=== PATIENT | female | born 1945 | race Two or more races ===

== ENCOUNTER → 2025-01-26 | Outpatient (CLI) | payer MEDICARE, MEDICAID, SELFPAY ==
[2025-01-26 10:05] LABS: Basophils # (Auto) 0.1 Thou/mm3 (0.0-0.2); Basophils % (Auto) 2 % (0-2.5); Eosinophils # (Auto) 0.1 Thou/mm3 (0.0-0.5); Eosinophils % (Auto) 3 % (0-10); Hematocrit 35.5 % (36.0-46.0); Hemoglobin 12.1 g/dL (12.0-16.0); Immature Granulocytes % (Auto) 0 % (0-0); Immature Granulocytes Auto 0.01 Thou/mm3 (0.00-0.00); Lymphocytes # (Auto) 1.3 Thou/mm3 (1.0-4.8); Lymphocytes % (Auto) 34 % (10-50); Mean Corpuscular HGB Conc 34.1 g/dl (31.0-37.0); Mean Corpuscular Hemoglobin 29.4 pg (25.0-35.0); Mean Corpuscular Volume 86 fL (80-100); Monocytes # (Auto) 0.4 Thou/mm3 (0.0-0.8); Monocytes % (Auto) 11 % (0-12); Neutrophils # (Auto) 1.9 Thou/mm3 (1.8-7.7); Neutrophils % (Auto) 51 % (37-80); Nucleated Red Blood Cell % 0 /100 WBC (0); Platelet Count 155 Thou/mm3 (140-440); RDW Standard Deviation 42.5 fL (36.4-46.3); Red Blood Count 4.12 Miln/mm3 (4.00-5.20); White Blood Count 3.8 Thou/mm3 (3.6-11.0)
[2025-01-26 10:13] LABS: Anion Gap 8 (7-16); BUN/Creatinine Ratio 35 Ratio (12-20); Blood Urea Nitrogen 21 mg/dL (9-23); Calcium 9.1 mg/dL (8.3-10.6); Carbon Dioxide 28.3 mMol/L (20.0-31.0); Chloride 105 mMol/L (98-107); Creatinine (Component) 0.6 mg/dL (0.6-1.3); Glucose 92 mg/dL (74-106); Osmolality,Calculated 284 (275-295); Potassium 3.4 mMol/L (3.4-5.1); Sodium 141 mMol/L (136-145); eGFR > 60 See Note
[2025-01-26 10:37] LABS: INR 1.1 (0.9-1.3); Partial Thromboplastin Time 28.1 Seconds (22.0-36.0); Prothrombin Time 11.8 Seconds (9.0-12.2)
[2025-01-28 23:37] LABS: HCV RNA, PCR <15 NOT DETECTED IU/mL
[2025-01-29 07:00] LABS: HCV RNA, PCR Log IU <1.18 NOT DETECTED Log IU/mL
== END | disposition home or self-care (01) ==
LOC: COPL 09:00
PROVIDERS: PCP Physician Assistant; Referring Provider Specialist; Visit Provider Radiology Diagnostic Radiology
DX: Z01.818 Encounter for other preprocedural examination (principal); I73.9 Peripheral vascular disease, unspecified; R53.1 Weakness; R79.1 Abnormal coagulation profile; R60.9 Edema, unspecified; R53.83 Other fatigue; B17.10 Acute hepatitis C without hepatic coma
CPT/HCPCS: 36415; 80048; 82105; 85025; 85610; 85730; 87522

== ENCOUNTER → 2025-02-05 | Outpatient (CLI) | payer MEDICARE, MEDICAID, SELFPAY ==
--- NOTE | 2025-02-05 10:30 | XR_ITS ---
Examination: Abdomen sonogram, Limited Date and time of exam: February 05, 2025 1050 hours INDICATIONS: Diagnosis chronic hepatitis C with abdominal pain beginning one year ago Technique: Real-time english scale transabdominal sonographic images of the upper abdomen obtained. Findings: Absent gallbladder Common bile duct abnormally enlarged 1.3 cm no stones Pancreatic head 2.2 cm Liver 14.1 cm lobular contour fatty infiltration Normal hepatopedal portal venous flow Patent IVC IMPRESSION: Abnormally enlarged common bile duct, consider MRCP follow-up Primary hepatocellular disease
== END | disposition home or self-care (01) ==
PROVIDERS: PCP Physician Assistant; Referring Provider Specialist; Visit Provider Specialist
DX: K83.8 Other specified diseases of biliary tract (principal); K76.89 Other specified diseases of liver
CPT/HCPCS: 76705

== ENCOUNTER 2025-04-28 07:30 | Day surgery (SDC) | payer MEDICARE, MEDICAID, SELFPAY ==
[2025-04-27 13:39] VITALS: BMI 24.0
[2025-04-28] VITALS (8 sets, daily range): BP systolic 113–195; BP diastolic 51–97; PULSE 54–77; RESP 14–20; TEMP 36.1–36.2; O2SAT 95–100; BMI 21.9
[2025-04-28] MEDS: BENZOCAINE 20% (Hurricaine) SPRAY 1 DOSE TOP (08:43)
[2025-04-28] MEDS: SODIUM CHLORIDE 0.9% 500 ML 500 ML 20 ML IV (08:43)
[2025-04-28] MEDS: fentaNYL CIT INJ 50 mCg/ML AMP 2ML (ASD USE ONLY) IVP (08:45)
[2025-04-28] MEDS: MIDAZOLAM INJ 1 MG/ML VIAL 2 ML (ASD USE ONLY) 2 MG IVP (08:45)
[2025-04-28] MEDS: hydrALAZINE INJ 20 MG/ML VIAL 10 MG IVP (08:48)
== END 2025-04-28 09:25 | disposition home or self-care (01) ==
PROVIDERS: PCP Physician Assistant; Referring Provider Specialist; Visit Provider Specialist
PROC: (CPT 43239; principal; 2025-04-28 08:30)
DX: I85.10 Secondary esophageal varices without bleeding (principal); K74.60 Unspecified cirrhosis of liver; K31.89 Other diseases of stomach and duodenum; K29.50 Unspecified chronic gastritis without bleeding; K44.9 Diaphragmatic hernia without obstruction or gangrene
CPT/HCPCS: 43235; J0360; J1200; J2250; J3010; J7999; A9270

== ENCOUNTER → 2025-06-02 | Outpatient (CLI) | payer MEDICARE, MEDICAID, SELFPAY ==
[2025-06-02 10:46] LABS: Collection Type, Urine Clean Catch; Squamous Epithelial Cell,Urine 0 /hpf (0-5)
[2025-06-02 12:10] LABS: Bacteria,Urine 1+; Bilirubin,Urine Negative (Negative); Blood,Urine Negative (Negative); Clarity,Urine Clear (Clear/Hazy); Color,Urine Lt-Yellow (Lt Yel-Yel); Glucose, Urine Negative (Negative); Ketones,Urine Negative (Negative); Leukocyte Esterase,Urine Negative (Negative); Nitrite,Urine Negative (Negative); PH,Urine 6.0 (5.0-7.0); Protein,Urine Negative (Neg - Trace); RBC,Urine 2 /hpf (0-3); Specific Gravity,Urine 1.012 (1.001-1.035); Urobilinogen,Urine Negative mg/dL (0.0-1.0); WBC,Urine 2 /hpf (0-5)
[2025-06-02 12:14] LABS: Culture Indicated,Urine Yes
== END | disposition home or self-care (01) ==
LOC: SLDO 10:40
PROVIDERS: Referring Provider Physician Assistant; Visit Provider Physician Assistant
DX: N39.3 Stress incontinence (female) (male) (principal); R82.90 Unspecified abnormal findings in urine
CPT/HCPCS: 81001; 87077; 87086; 87186

== ENCOUNTER 2025-06-06 09:27 | Emergency (ER) | payer MEDICARE, MEDICAID, SELFPAY ==
[2025-06-06 09:34] VITALS: PULSE 76; RESP 20; O2SAT 96
[2025-06-06 09:39] VITALS: BMI 26.4
--- NOTE | 2025-06-06 09:39 | EKG_ITS ---
[facility] Test Date: 2025-06-06 Pat Name: MIGUEL ANGEL SMALL Department: Room: - Gender: Female Bee Raiser: : [phone] Requested By: Narciso Cohen Order Number: [id number] Reading MD: Narciso Cohen Measurements Intervals [place] Rate: 69 P: 61 NE: 158 QRS: 9 QRSD: 95 T: 32 QT: 403 QTc: 434 Interpretive Statements SINUS RHYTHM VOLTAGE CRITERIA FOR LVH [MEETS CRITERIA IN ONE OF: R(aVL), S(V1), R(V5), R(V5/V6)+S(V1)] Compared to ECG 05/20/2025 10:30:59 Left ventricular hypertrophy now present Sinus bradycardia no longer present Myocardial infarct finding no longer present /store/S0/[id number]/[id number].pdf
[2025-06-06 09:45] VITALS: BP 218/81; PULSE 67; RESP 18; TEMP 37.4; O2SAT 95
--- NOTE | 2025-06-06 10:31 | PD.EDABDPN ---
ED Abdominal Pain RME/HPI General Chief Complaint: Abdominal Pain Stated complaint: ABD PAIN Time seen by provider: 06/06/25 09:53 Arrival date/time: 06/06/25 09:27 Limitations: no limitations RME / HPI RME / HPI narrative: 79 year old female with history of hypertension, diabetes, hepatitis C (treated) presents to the ED for evaluation of abdominal pain beginning this morning. Located to the right mid to lower abdomen, described as aching in sensation, rating 9/10 in severity. No associated nausea, vomiting, diarrhea, or constipation. Daughter mentioned the patient underwent knee surgery on 05/21/2025 she is mostly sedentary. States physical therapy does come to her home and yesterday was walking with her walker. Daughter states the patient is straining while walking with walker and unsure if that attributed to her pain today. Denies fevers, chills, chest pain, cough, shortness of breath. Related Data Home Medications ?Medication ?Instructions ?Recorded ?Confirmed propranolol 20 mg tablet 20 mg PO BID 07/31/23 05/21/25 fenofibrate 54 mg tablet 54 mg PO QDAY 04/28/25 05/21/25 hydrocodone 5 mg-acetaminophen 325 1 tab PO Q6H PRN pain 04/28/25 05/21/25 mg tablet baclofen 10 mg tablet 10 mg PO QDAY PRN pain 05/20/25 05/21/25 gabapentin 100 mg capsule 100 mg PO TID 05/20/25 05/21/25 (Neurontin) lisinopril 20 mg tablet 20 mg PO DAILY 05/20/25 05/21/25 Allergies Allergy/AdvReac Type Severity Reaction Status Date / Time No Known Allergies Allergy Verified 05/21/25 06:36 Review of Systems Review of Systems Systems Reviewed: All systems reviewed, normal except as documented Past Medical History Past Medical History CARDIAC: Positive Cardiac Disorders, Hypertension and Varicose Veins GASTROINTESTINAL: Positive Hepatitis (Hep C was treated) GENITOURINARY: Positive Genitourinary Disorders and Kidney Stones REPRODUCTIVE: Positive Previous Pregnancies MUSCULOSKELETAL: Positive Musculoskeletal Disorders and Arthritis ENDOCRINE: Positive Endocrine Disorders and Diabetes Mellitus Type 2 (diet control) OTHER HISTORY: Positive Down Syndrome, Falls and Blood Transfusions Family History FAMILY HISTORY: Positive Family Cancer Surgical History SURGICAL: Positive Abdominal Surgery, Joint Replacement and Knee Sx Social History SMOKING STATUS: Never smoker SUBSTANCE USE: does not use ED Exam General Limitations: Present no limitations General appearance: Present alert and in no apparent distress Head Head exam: Present atraumatic Eye Eye exam: Present normal appearance, PERRL and EOMI ENT ENT exam: Present normal exam, normal oropharynx and mucous membranes moist Neck Neck exam: Present normal inspection, full ROM and trachea midline Chest Chest inspection: Present normal inspection and symmetric chest wall rise Respiratory Respiratory exam: Present normal lung sounds bilaterally Cardiovascular Cardiovascular exam: Present regular rate, normal rhythm and normal heart sounds Abdominal Exam Abdominal exam: Present soft, normal bowel sounds and other (There is a hernia measuring 10cm x 7cm that is firm and not reducible, 1+ tender of her right mid lower abdomen, the hernia extends off the umbilical area. ) Extremities Exam Extremities exam: Present full ROM and other (right knee with a healed surgical incision, ecchymosis of the right leg, no edema to BLE ) Back Exam Back exam: Present normal inspection and full ROM Neurological Exam Neurological exam: Present alert, oriented X3 and CN II-XII intact Psychiatric Psychiatric exam: Present normal affect and normal mood Skin Skin exam: Present warm, dry, intact and normal color Course Quality Measures none Orders Category Date Time Status Corporate Communications Manager STAT Care 06/06/25 11:37 Active Continuous Pulse Oximetry STAT Care 06/06/25 11:37 Completed EKG (ED ONLY) *Do not use* NOW Care 06/06/25 09:39 Completed Wetzel [Urinary Catheter] X1 Care 06/06/25 12:16 Active Wetzel to [place] Routine Care 06/06/25 11:37 Ordered Insert IV STAT Care 06/06/25 11:37 Active NPO STAT Care 06/06/25 11:[address] abdomen pelvis wo con Stat Exams 06/06/25 11:53 Completed EKG (ED Only) Stat Exams 06/06/25 09:39 Draft CBC Stat Lab 06/06/25 11:30 Completed Comprehensive Metabolic Panel Stat Lab 06/06/25 11:30 Completed Lipase Stat Lab 06/06/25 11:30 Completed Magnesium Stat Lab 06/06/25 11:30 Completed Prothrombin Time with INR Stat Lab 06/06/25 11:30 Completed Urinalysis Stat Lab 06/06/25 12:10 Completed Sodium Chloride 0.9% 1000 ml [Ns] 1,000 ml Med 06/06/25 11:37 Discontinued IV 999 mls/hr Vital Signs Vital signs: Vital Signs Temperature 99.4 F 06/06/25 09:45 Pulse Rate 67 06/06/25 09:45 Respiratory Rate 18 06/06/25 09:45 Blood Pressure 218/81 H 06/06/25 09:45 Pulse Oximetry (%) 95 06/06/25 09:45 Oxygen Delivery Method Room Air 06/06/25 09:45 Pulse ox is 95% on room air which is adequate. Abdominal Pain MDM MDM Narrative MDM Narrative:: Josefina Calvo am scribing for and in the presence of Dr. Castañeda. 1150: The patient had a wetzel catheter inserted with about ~ 1,800cc of urine with improvement in the mass felt during initial examination. Patient data External records reviewed:: [facility] previous records (I reviewed operative report from 05/21/2025 ) and EMS form Clinical information provided by:: patient and family Social determinants that could affect healthcare access:: none Patient has the following chronic illnesses:: hypertension, diabetes, hepatitis C (treated) How is presenting disease/condition affected by chronic disease/condition?: exacerbated by Evaluation data The following diagnostics were reviewed and interpreted by me:: lab results, radiology exam(s) and EKG tracing(s) (06/06/2025 @ 09:39 AM. sinus rhythm rate 69, voltage criteria for LVH, no acute changes, WA 158 ms, QRS 95 ms. ) Lab and/or radiology exams considered but not ordered:: None Interpretation Summary: Ordering Physician: Narciso Castañeda MD Date of Service: 06/06/25 Procedure(s): CT abdomen pelvis wo con Accession Number(s): [id number] cc: Narciso Castañeda MD; Aguilar Bateman PA-C; Teo Weldon MD~ Examination: CT abdomen and pelvis without contrast. Coronal 3-D reconstructions. Sagittal 2-D reconstructions. Date and time of exam:June 06, 2025, 12:40 PM, comparison 06/27/2023. Indications: Palpable mass in the right lower abdomen with abdominal pain today. CTDI: vol (mGy): 6.19. DLP: (mGycm): 315. Technique: Axial images of the abdomen have been obtained, 3 mm slice thickness Intravenous contrast material has not been administered. Low dose protocols were performed. One or more of the following dose reduction techniques were used; automated exposure control, adjustment of the mA and/or KV according to patient size, use of iterative reconstruction technique. Findings: Mild to moderate enlargement cardiac contour. Cirrhosis, liver nodular in contour with significant splenomegaly. No focal liver lesions. Absent gallbladder. Common bile duct 14 mm no common bile duct stones. No pancreatic or adrenal mass. 4 mm lower pole left renal calculus, no hydronephrosis or ureteral calculi. No bowel obstruction Normal appendix Abundant stool in the rectum Urinary bladder is contracted around a Wetzel catheter. Large fat-containing inguinal hernias. Severe osteopenia with grade 1 anterolisthesis L5 on S1 Moderate bilateral osteoarthritis. Impression: Cirrhosis, significant splenomegaly. Common bile duct 14 mm, recommend repeat hepatobiliary sonography follow-up. 4 mm lower pole left renal calculus, no hydronephrosis or ureteral calculi. Normal appendix. Abundant stool in the rectum. Dictated By: Teo Weldon MD Signed By: <Electronically signed by Teo Weldon MD in OV> 06/06/25 1412 Medications / Prescriptions Medications or Prescriptions considered but not ordered:: None Medication administrations:: Medication Administration History Discontinued Medications Sodium Chloride (Ns) 1,000 mls @ 999 mls/hr IV .Q1H1M ONE Stop: 06/06/25 12:37 Last Infusion: 06/06/25 14:04 Dose: Infused Documented By: Admin: 06/06/25 12:49 Dose: 999 mls/hr Documented By: WHITNEY See above Consultations Consultation(s) initiated? (list below): Yes Consultation #1 (Physician, Specialty, Details): I spoke with surgeon Dr. Jones. Discussed hpi, pmhx, ED course, and physical exam findings. States he will come assess patient in the ED. Consultation #2 (Physician, Specialty, Details): Dr. Jones has evaluated the patient and reports the patients bladder is distended. Recommended wetzel catheter placement and reassessment. Diagnosis Differential diagnosis abdominal pain: abdominal pain, constipation, small bowel obstruction and other (hernia) Most likely diagnosis given after review of the tests above:: Urinary retention Admission Indicated Admission indicated?: not indicated Admission Request Was there a request for admission?: No Disposition Plan Disposition Plan: Discharge Discharge Attestation Discharge Attestation: The patient and all family members were given an opportunity to ask questions and understood the discharge instructions. Discharge instructions specifically effects, indications for sooner follow up or return to the emergency department, and the expected course of current diagnosis. Patient condition: Stable Discharge Plan Plan Patient Disposition: HOME (Self Care) Prescriptions/Referrals Prescriptions/Med Rec: No Action propranolol 20 mg tablet 20 mg PO BID Patient Comments: TAKE 1 TABLET BY MOUTH TWICE DAILY FOR TREMORS baclofen 10 mg tablet 10 mg PO QDAY PRN (Reason: pain) gabapentin [Neurontin] 100 mg capsule 100 mg PO TID lisinopril 20 mg tablet 20 mg PO DAILY Patient Comments: TAKE 1 TABLET BY MOUTH DAILY fenofibrate 54 mg tablet 54 mg PO QDAY Patient Comments: TAKE 1 TABLET BY MOUTH DAILY WITH FOOD hydrocodone-acetaminophen 5-325 mg tablet 1 tab PO Q6H PRN (Reason: pain) Patient Comments: TAKE 1 TABLET BY MOUTH EVERY 6 TO 8 HOURS NEEDED Referrals: Aguilar Bateman PA-C [Primary Care Provider] - In 1 week Problem List Clinical Impression: Acute urinary retention Patient/Caregiver Discharge Instructions Discharge Activity: as per physical therapy and activity as tolerated Education Materials: ED Urinary Retention, Female Additional Instructions: Follow-up with your medical doctor in 2 days. Continue using the Wetzel catheter and leg bag until seen by a urologist. Please ask your primary care doctor for urology referral. Print Language: Sinhala Stand Alone Forms: Katelyn Award Info., Patient Portal Info Letter
--- NOTE | 2025-06-06 11:53 | XR_ITS ---
Examination: CT abdomen and pelvis without contrast. Coronal 3-D reconstructions. Sagittal 2-D reconstructions. Date and time of exam:June 06, 2025, 12:40 PM, comparison 06/27/2023. Indications: Palpable mass in the right lower abdomen with abdominal pain today. CTDI: vol (mGy): 6.19. DLP: (mGycm): 315. Technique: Axial images of the abdomen have been obtained, 3 mm slice thickness Intravenous contrast material has not been administered. Low dose protocols were performed. One or more of the following dose reduction techniques were used; automated exposure control, adjustment of the mA and/or KV according to patient size, use of iterative reconstruction technique. Findings: Mild to moderate enlargement cardiac contour. Cirrhosis, liver nodular in contour with significant splenomegaly. No focal liver lesions. Absent gallbladder. Common bile duct 14 mm no common bile duct stones. No pancreatic or adrenal mass. 4 mm lower pole left renal calculus, no hydronephrosis or ureteral calculi. No bowel obstruction Normal appendix Abundant stool in the rectum Urinary bladder is contracted around a Joyner catheter. Large fat-containing inguinal hernias. Severe osteopenia with grade 1 anterolisthesis L5 on S1 Moderate bilateral osteoarthritis. Impression: Cirrhosis, significant splenomegaly. Common bile duct 14 mm, recommend repeat hepatobiliary sonography follow-up. 4 mm lower pole left renal calculus, no hydronephrosis or ureteral calculi. Normal appendix. Abundant stool in the rectum.
[2025-06-06 12:15] VITALS: BP 189/75; PULSE 72; RESP 18; TEMP 36.9; O2SAT 99
[2025-06-06 12:22] LABS: Collection Type, Urine Clean Catch
[2025-06-06 12:23] LABS: Basophils # (Auto) 0.0 Thou/mm3 (0.0-0.2); Basophils % (Auto) 1 % (0-2.5); Eosinophils # (Auto) 0.1 Thou/mm3 (0.0-0.5); Eosinophils % (Auto) 2 % (0-10); Hematocrit 26.2 % (36.0-46.0); Immature Granulocytes Auto 0.12 Thou/mm3 (0.00-0.00); Lymphocytes # (Auto) 0.9 Thou/mm3 (1.0-4.8); Lymphocytes % (Auto) 17 % (10-50); Mean Corpuscular HGB Conc 30.9 g/dl (31.0-37.0); Mean Corpuscular Hemoglobin 28.2 pg (25.0-35.0); Mean Corpuscular Volume 91 fL (80-100); Monocytes # (Auto) 0.4 Thou/mm3 (0.0-0.8); Monocytes % (Auto) 8 % (0-12); Neutrophils # (Auto) 3.7 Thou/mm3 (1.8-7.7); Neutrophils % (Auto) 70 % (37-80); Nucleated Red Blood Cell # 0.00 Thou/mm3 (0.00-0.00); Nucleated Red Blood Cell % 0 /100 WBC (0); Platelet Count 263 Thou/mm3 (140-440); RDW Standard Deviation 47.7 fL (36.4-46.3); Red Blood Count 2.87 Miln/mm3 (4.00-5.20); White Blood Count 5.3 Thou/mm3 (3.6-11.0)
[2025-06-06 12:32] LABS: Bilirubin,Urine Negative (Negative); Blood,Urine 1+ (Negative); Clarity,Urine Clear (Clear/Hazy); Color,Urine Colorless (Lt Yel-Yel); Glucose, Urine Negative (Negative); Ketones,Urine Negative (Negative); Leukocyte Esterase,Urine Negative (Negative); Nitrite,Urine Negative (Negative); PH,Urine 7.0 (5.0-7.0); Protein,Urine Negative (Neg - Trace); RBC,Urine 16 /hpf (0-3); Specific Gravity,Urine 1.008 (1.001-1.035); Squamous Epithelial Cell,Urine < 1 /hpf (0-5); Urobilinogen,Urine Negative mg/dL (0.0-1.0); WBC,Urine 4 /hpf (0-5)
[2025-06-06 12:40] LABS: INR 1.1 (0.9-1.3); Prothrombin Time 11.9 Seconds (9.0-12.2)
[2025-06-06 12:46] LABS: Alanine Aminotransferase 12 U/L (10-49); Albumin, Serum 3.8 gm/dL (3.4-4.8); Albumin/Globulin Ratio 1.5 (1.2-2.2); Alkaline Phosphatase 53 U/L (46-116); Anion Gap 10 (7-16); Aspartate Amino Transferase 34 U/L (0-34); BUN/Creatinine Ratio 24 Ratio (12-20); Bilirubin,Total 0.7 mg/dL (0.3-1.2); Blood Urea Nitrogen 17 mg/dL (9-23); Calcium 9.4 mg/dL (8.3-10.6); Calcium (Corrected) 9.6 mg/dL (8.5-10.1); Carbon Dioxide 27.6 mMol/L (20.0-31.0); Chloride 111 mMol/L (98-107); Creatinine (Component) 0.7 mg/dL (0.6-1.3); Estimated Creatinine Clearance 52.8 mL/min (>60); Globulin 2.6 gm/dL (2.3-3.5); Glucose 89 mg/dL (74-106); Lipase 28 U/L (12-53); Magnesium 1.8 mg/dL (1.6-2.6); Osmolality,Calculated 296 (275-295); Potassium 3.9 mMol/L (3.4-5.1); Sodium 149 mMol/L (136-145); Total Protein 6.4 gm/dL (5.7-8.2); eGFR > 60 See Note
[2025-06-06] MEDS: SODIUM CHLORIDE 0.9% 1000 ML 1,000 ML 999 ML IV (12:49)
[2025-06-06 13:00] LABS: Hemoglobin 8.1 g/dL (12.0-16.0)
[2025-06-06 14:45] VITALS: BP 179/75; PULSE 64; RESP 16; TEMP 37; O2SAT 98
--- NOTE | 2025-06-06 15:56 | PC.CC ---
Addendum entered by Yandy Sanchez 06/06/25 17:26: 1726-Dispatch called and said they cannot send an driver retraining instructor until 1845. Addendum entered by Yandy Sanchez 06/06/25 16:20: 1620-Pt will be picked up at 1745 or sooner, as per [employer]patch. Original Note: [facility] contacted [facility] and they provided Trip Reservation #[id number]. [facility]patch will call once they receive approval from the pts insurance for the transport.
[2025-06-06 16:14] VITALS: BP 184/72; PULSE 70; RESP 16; TEMP 37.6; O2SAT 97
--- NOTE | 2025-06-06 17:05 | PC.NURSE ---
Leg bag placed and teaching given to Pt and family
[2025-06-06 18:04] VITALS: BP 196/76; PULSE 76; RESP 16; TEMP 36.7; O2SAT 99
== END 2025-06-06 18:07 | disposition home or self-care (01) ==
PROVIDERS: Emergency Provider Family Medicine; PCP Physician Assistant
DX: R33.9 Retention of urine, unspecified (principal); K74.60 Unspecified cirrhosis of liver; R16.1 Splenomegaly, not elsewhere classified; N20.0 Calculus of kidney; B19.20 Unspecified viral hepatitis C without hepatic coma; I10 Essential (primary) hypertension
CPT/HCPCS: 51702; 36415; 74176; 80053; 81001; 83690; 83735; 85025; 85610; 93005; 96360; 99284; A4314; J7030